=== PATIENT | male | born 1975 | race Caucasian/White ===

== ENCOUNTER 2022-11-30 06:36 | Day surgery (SDC) | payer OTHER ==
[~2022-11-30 06:36] MED LIST: Lactated Ringers 1,000 ML IV SCH
[2022-11-30] MEDS ORDERED: DIPRIVAN 200 MG/20 ML IV ONE ×2 (07:52→08:04)
[2022-11-30] MEDS ORDERED: Xylocaine-Mpf 2% 5 Ml Vial ONE (07:52)
[2022-11-30 08:55] LABS: Hematocrit 46.2 % (42-50); Hemoglobin 15.4 g/dL (12.5-18.0); Mean Corpuscular Hemoglobin 29.7 pg (26-32); Mean Corpuscular Hgb Concent. 33.3 g/dL (32-36); Mean Platelet Volume 11.3 fL (7.5-11.0); Platelet Count 210 x10^3/uL (150-450); Red Blood Count 5.19 x10^6/uL (4.1-5.6); Red Cell Distribution Width 12.7 % (11.5-14.0); White Blood Count 4.4 x10^3/uL (4.0-10.5)
[2022-11-30 09:08] LABS: ALBUMIN 4.5 g/dL (3.5-5.0); ALKALINE PHOSPHATASE 57 U/L (38-126); ANION GAP 10.6 MEQ/L (5-15); BLOOD UREA NITROGEN 11 mg/dL (9-20); CHLORIDE 105 mmol/L (98-107); Calcium 9.3 mg/dL (8.4-10.2); Carbon Dioxide 30 mmol/L (22-30); Creatinine 1 0.84 mg/dL (0.66-1.25); EST GLOMERULAR FILTRATION RATE > 60.0 ML/MIN; Glucose 101 mg/dL (74-106); SGOT/AST 41 U/L (17-59); SGPT/ALT 36 U/L (0-50); SODIUM 141 mmol/L (137-145); Total Protein 7.5 g/dL (6.3-8.2)
[2022-11-30 09:39] VITALS: BP 128/86; PULSE 52; O2SAT 100
--- NOTE | 2022-11-30 11:30 | OP ---
SURGERY DATE/TIME: 11/30/2022 0756 PREOPERATIVE DIAGNOSIS: Diarrhea and feeling of incomplete relief after bowel movements. 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 PROCEDURE: Colonoscopy with cold forceps biopsy. SURGEON: Dr. Holloway. ANESTHESIA: MAC. Medications given by anesthesia department. HISTORY: The patient is a 47-year-old white male patient with the above complaints of incomplete relief with bowel movements and at least five to six diarrheal stools a day. He also has a large family history of cancer of the colon. The patient is felt the need to have colonoscopic evaluation. He was appraised of the risks of the procedure including the risk of perforation, phlebitis, untoward reaction to medication, bleeding and missed lesions. The patient verbalized his understanding and desired to have the procedure performed. DESCRIPTION OF PROCEDURE: The patient was given the medications by the anesthesia department. He had continuous pulse oximetry, ECG monitoring and intermittent blood pressure monitoring during the examination. He was placed in the left lateral decubitus position. A digital rectal examination was performed and revealed normal anal sphincter tone, no masses and normal prostate. The flexible Olympus pediatric colonoscope was used to intubate the rectum. A view of the colon was developed sequentially to the cecum. Upon insertion and withdrawal was noted what appears to be a tubulovillous adenoma versus early adenocarcinoma of the colon in the distal sigmoid colon approximately at 10 cm depth insertion. Biopsies were obtained from several areas of this to help to determinate the lesion after which the scope was removed from the patient who tolerated the procedure well and was sent back to OP recovery in good condition. The prep was noted to be good. We discussed the findings with the patient's and have already made plans to get the patient a CT with and without contrast as well as a CBC, CMP and CEA level.
--- NOTE | 2022-11-30 11:35 | XRAY ---
Indication: Incomplete colonoscopy. Multiple contiguous axial images obtained through the abdomen and pelvis prior to and following 80 cc Isovue 370 contrast as ordered. Comparison: None Lung bases demonstrates minimal dependent atelectasis. No suspicious pulmonary mass, infiltrate, or effusion. Heart not enlarged. Noncontrasted images demonstrates nonobstructing left renal punctate calculus. No other visceral calcifications/calculi. Noncontrasted stomach and bowel loops appear nonobstructed with normal appendix. No free fluid/air. Postcontrast images demonstrate normal visceral enhancement and renal excretion. Left lobe liver demonstrates 7 mm hepatic cyst. Remaining liver, gallbladder, pancreas, spleen, adrenal glands, kidneys, ureters, bladder, and aorta are normal in CT appearance and attenuation. No pathologic retroperitoneal lymphadenopathy. Osseous structures intact. No ventral or inguinal hernias. Impression: 1. Nonobstructing left renal punctate calculus and subcentimeter hepatic cysts. 2. Remaining CT abdomen/pelvis with and without contrast exam is negative. 3. Barium enema exam may yield further information if there remains further clinical concern.
== END 2022-11-30 11:15 | disposition home or self-care (01) ==
LOC: SDC 06:36
PROVIDERS: ATTEND Family Medicine
DX: D12.5 Benign neoplasm of sigmoid colon (principal); R19.7 Diarrhea, unspecified; Z80.0 Family history of malignant neoplasm of digestive organs
CPT/HCPCS: 36415; 74178; 80053; 82378; 82947; 85027; J2704

== ENCOUNTER 2024-03-10 16:42 | Emergency (ER) | payer OTHER, SELFPAY ==
--- NOTE | 2024-03-10 17:04 | ERPHSYRPT ---
- History of Present Illness Source: patient, family Exam Limitations: no limitations Patient Subjective Stated Complaint: Pt states "I have been having a hard time picking stuff up with my right hand for a couple of months but today an hour ago at 345 pm the right side of my face was droopy and my speech got really slurred. It is a little better right now." Triage Nursing Assessment: PT presented alert and oriented x 3, skin pwd. pt speech is slurred, face slightly droops on the right, pt able to move all extremities bilat. Timing/Duration: today Severity: mild Character of Deficits: altered sensation (To moderate right facial numbness), impaired speech Baseline/Normal Cognition: alert oriented x 3 Current Cognition: alert oriented x 3 Baseline Gait: walks w/o assistance Associated Symptoms: slurred speech, other (Numbness right side of face with mild right-sided facial droop) Hx Tetanus, Diphtheria Vaccination/Date Given: No Hx Influenza Vaccination/Date Given: No Hx Pneumococcal Vaccination/Date Given: No Immunizations Up to Date: No <DELMAR RUANO - Last Filed: 03/10/24 19:05> <VAN SEALS - Last Filed: 03/10/24 19:57> - History of Present Illness Time Seen by Provider: 03/10/24 17:03 Physician History: This is a 48-year-old white male patient who presents to the emergency department with complaint of heaviness in the right side of his face with facial drooping, right-sided facial numbness and slurred speech. Patient states that this occurred approximately 3:45 PM prior to arrival to the emergency department. Patient states that he heard some very bad news today and he became distraught. In the last 2 months or greater the patient has had episodes that presents themselves when the patient is distraught emotionally upset or having a panic attack. 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 His significant other concurs. Patient has been seen in [facility] emergency department on 2 different occasions with similar type episodes. The initial visit, a CT scan of the head was performed followed by a MRI of the brain with and without contrast on the second visit. Both episodes occurred after patient was experiencing something very emotional for him. He has never seen a neurologist. Today's symptoms appear to affect his speech and right side of his face with numbness and slight drooping. The radiologist impression of the MRI with and without contrast was read as no acute/recent infarction. The right parietal calvarial small lucent lesion has intrinsic T1 hyperintensity and compatible with an intraosseous lesion. Patient denies chest pain. Patient denies shortness of breath. Patient has no abdominal pain. Patient appears very anxious (DELMAR RUANO) Allergies/Adverse Reactions: Penicillins Allergy (Verified 11/30/22 06:44) Home Medications: No Reportable Medications [No Reported Medications] 03/10/24 [History] Travel Risk - International Travel Have you traveled outside of the country in past 3 weeks: No - Emerging Infectious Disease Are you exhibiting symptoms associated with any current EIDs: No <DELMAR RUANO - Last Filed: 03/10/24 19:05> - Review of Systems Constitutional: No Symptoms Eyes: No Symptoms Ears, Nose, & Throat: No Symptoms Respiratory: No Symptoms Cardiac: No Symptoms Abdominal/Gastrointestinal: No Symptoms Genitourinary Symptoms: No Symptoms Musculoskeletal: No Symptoms Neurological: Parasthesia (+ Facial droop), Speech Changes (Slurred speech) Psychological: No Symptoms Endocrine: No Symptoms Hematologic/Lymphatic: No Symptoms Immunological/Allergic: No Symptoms All Other Systems: Reviewed and Negative <DELMAR RUANO - Last Filed: 03/10/24 19:05> - Past Medical History Pertinent Past Medical History: No Neurological History: No Pertinent History ENT History: No Pertinent History Cardiac History: No Pertinent History Respiratory History: No Pertinent History Endocrine Medical History: No Pertinent History Musculoskeletal History: No Pertinent History GI Medical History: No Pertinent History History: No Pertinent History Psycho-Social History: No Pertinent History Male Reproductive Disorders: No Pertinent History Other Medical History: gastric system delayed - Past Surgical History Past Surgical History: Yes Neuro Surgical History: No Pertinent History Cardiac: No Pertinent History Respiratory: No Pertinent History Gastrointestinal: No Pertinent History Genitourinary: No Pertinent History Musculoskeletal: No Pertinent History Male Surgical History: No Pertinent History Other Surgical History: wisdom teeth - Social History Smoking Status: Never smoker Exposure to second hand smoke: No Drug Use: none <DELMAR RUANO - Last Filed: 03/10/24 19:05> - [place] Coma Scale Best Eye Response ([place]): (4) open spontaneously Best Verbal Response (Slim): (5) oriented Best Motor Response ([place]): (6) obeys commands [place] Total: 15 - Physical Exam General Appearance: no apparent distress, alert, anxiety Eye Exam: bilateral eye: normal inspection, PERRL, EOMI Ears, Nose, Throat Exam: normal ENT inspection, moist mucous membranes Neck Exam: normal inspection, non-tender, supple, full range of motion Respiratory: normal breath sounds, lungs clear, airway intact, No chest tenderness, No respiratory distress Cardiovascular: regular rate/rhythm, normal heart sounds, normal peripheral pulses Gastrointestinal: soft, normal bowel sounds, No tenderness Male Genitalia: normal genitalia Rectal Exam: not done Back Exam: normal inspection, normal range of motion, No CVA tenderness, No vertebral tenderness Extremity Exam: normal inspection, normal range of motion, pelvis stable Mental Status: alert, oriented x 3, cooperative history department chair Exam: normal hearing, PERRL, abnormal speech, facial paresthesias (Right side facial numbness), tongue midline Motor/Sensory: no motor deficit, no sensory deficit Skin Exam: warm, dry, ecchymosis (Mild ecchymosis that is healing that occurred within the last couple of weeks after he had fallen. No deformity no pain) SpO2 Interpretation: normal SpO2: 100 O2 Delivery: Room Air <DELMAR RUANO - Last Filed: 03/10/24 19:05> - Nursing Vital Signs Nursing Vital Signs: Initial Vital Signs Pulse Rate 76 03/10/24 16:43 Respiratory Rate 22 03/10/24 16:43 Blood Pressure 159/113 03/10/24 16:43 O2 Sat by Pulse Oximetry 100 03/10/24 16:43 Pain Scale Pain Intensity 0 - Course Nursing assessment & vital signs reviewed: Yes <DELMAR RUANO - Last Filed: 03/10/24 19:05> Ordered Tests: Active Orders 24 hr Category Date Time Status AMA [Release AMA] OM.NOW Care 03/10/24 19:33 Active Painter Sign Maintenance STAT Care 03/10/24 17:09 Active EKG-ER Only STAT Care 03/10/24 17:08 Active IV Insertion STAT Care 03/10/24 17:08 Active NPO (ED) STAT Care 03/10/24 17:08 Active POCT Glucose Check STAT Care 03/10/24 17:08 Active Pulse Oximetry (ED) STAT Care 03/10/24 17:[address] ANGIOGRAPHY NECK [CT] Stat Exams 03/10/24 17:29 Taken CTA HEAD W AND/OR WO CONTRAST [CT] Stat Exams 03/10/24 17:04 Taken CBC W DIFF Stat Lab 03/10/24 17:00 Completed CMP Stat Lab 03/10/24 17:00 Completed PROTIME WITH INR Stat Lab 03/10/24 17:00 Completed UA W/RFX UR CULTURE Stat Lab 03/10/24 17:21 Completed Lab/Rad Data: Laboratory Result Diagrams 03/10/24 17:00 03/10/24 17:00 Laboratory Results 03/10/24 03/10/24 03/10/24 Range/Units 17:21 17:00 17:00 WBC (4.0-10.5) x10^3/uL RBC (4.1-5.6) x10^6/uL Hgb (12.5-18.0) g/dL Hct (42-50) % MCV (78-100) fL MCH (26-32) pg MCHC (32-36) g/dL RDW (11.5-14.0) % Plt Count (150-450) x10^3/uL MPV (7.5-11.0) fL Gran % (36.0-66.0) % Immature Gran % (Auto) (0.00-0.4) % Nucleat RBC Rel Count (0.00-0.1) % Eos # (Auto) (0-0.5) x10^3/uL Immature Gran # (Auto) (0.00-0.03) x10^3u/L Absolute Lymphs (auto) (1.0-4.6) x10^3/uL Absolute Monos (auto) (0.0-1.3) x10^3/uL Absolute Nucleated RBC (0.00-0.01) x10^3u/L Lymphocytes % (24.0-44.0) % Monocytes % (0.0-12.0) % Eosinophils % (0.00-5.0) % Basophils % (0.0-0.4) % Absolute Granulocytes (1.4-6.9) x10^3/uL Basophils # (0-0.4) x10^3/uL PT 10.2 (9.4-12.5) SECONDS INR 0.93 (0.8-3.0) Sodium 141 (135-145) mmol/L Potassium 4.4 (3.5-5.1) mmol/L Chloride 106 (98-107) mmol/L Carbon Dioxide 29 (22-30) mmol/L Anion Gap 10.5 (5-15) MEQ/L BUN 18 (9-20) mg/dL Creatinine 0.85 (0.66-1.25) mg/dL Estimated GFR 105.9 ML/MIN Glucose 91 (74-106) mg/dL Calcium 9.5 (8.4-10.2) mg/dL Total Bilirubin 0.70 (0.2-1.3) mg/dL AST 29 (17-59) U/L ALT 19 (0-50) U/L Alkaline Phosphatase 48 (38-126) U/L Serum Total Protein 7.6 (6.3-8.2) g/dL Albumin 4.4 (3.5-5.0) g/dL Urine Color Yellow (Yellow) Urine Appearance Clear (Clear) Urine pH 8.0 (4.6-8.0) Ur Specific [place] 1.010 (1.005-1.030) Urine Protein Negative (Negative) Urine Glucose (UA) Negative (Negative) mg/dL Urine Ketones Negative (Negative) Urine Blood Negative (Negative) Urine Nitrite Negative (Negative) Urine Bilirubin Negative (Negative) Urine Urobilinogen 0.2 (0.2) mg/dL Ur Leukocyte Esterase Small A (Negative) U Hyaline Cast (Auto) NONE SEEN (0-2) /LPF Urine Microscopic RBC 0-2 (0-5) /HPF Urine Microscopic WBC 0-2 (0-5) /HPF Ur Epithelial Cells None Seen (None Seen) /HPF Urine Bacteria None Seen (None Seen) /HPF Urine Culture Reflexed NO (NO) 03/10/24 Range/Units 17:00 WBC 5.5 (4.0-10.5) x10^3/uL RBC 4.98 (4.1-5.6) x10^6/uL Hgb 14.5 (12.5-18.0) g/dL Hct 42.5 (42-50) % MCV 85.3 (78-100) fL MCH 29.1 (26-32) pg MCHC 34.1 (32-36) g/dL RDW 12.7 (11.5-14.0) % Plt Count 232 (150-450) x10^3/uL MPV 11.6 H (7.5-11.0) fL Gran % 62.9 (36.0-66.0) % Immature Gran % (Auto) 0.2 (0.00-0.4) % Nucleat RBC Rel Count 0.0 (0.00-0.1) % Eos # (Auto) 0.09 (0-0.5) x10^3/uL Immature Gran # (Auto) 0.01 (0.00-0.03) x10^3u/L Absolute Lymphs (auto) 1.40 (1.0-4.6) x10^3/uL Absolute Monos (auto) 0.50 (0.0-1.3) x10^3/uL Absolute Nucleated RBC 0.00 (0.00-0.01) x10^3u/L Lymphocytes % 25.6 (24.0-44.0) % Monocytes % 9.2 (0.0-12.0) % Eosinophils % 1.6 (0.00-5.0) % Basophils % 0.5 (0.0-0.4) % Absolute Granulocytes 3.43 (1.4-6.9) x10^3/uL Basophils # 0.03 (0-0.4) x10^3/uL PT (9.4-12.5) SECONDS INR (0.8-3.0) Sodium (135-145) mmol/L Potassium (3.5-5.1) mmol/L Chloride (98-107) mmol/L Carbon Dioxide (22-30) mmol/L Anion Gap (5-15) MEQ/L BUN (9-20) mg/dL Creatinine (0.66-1.25) mg/dL Estimated GFR ML/MIN Glucose (74-106) mg/dL Calcium (8.4-10.2) mg/dL Total Bilirubin (0.2-1.3) mg/dL AST (17-59) U/L ALT (0-50) U/L Alkaline Phosphatase (38-126) U/L Serum Total Protein (6.3-8.2) g/dL Albumin (3.5-5.0) g/dL Urine Color (Yellow) Urine Appearance (Clear) Urine pH (4.6-8.0) Ur Specific [place] (1.005-1.030) Urine Protein (Negative) Urine Glucose (UA) (Negative) mg/dL Urine Ketones (Negative) Urine Blood (Negative) Urine Nitrite (Negative) Urine Bilirubin (Negative) Urine Urobilinogen (0.2) mg/dL Ur Leukocyte Esterase (Negative) U Hyaline Cast (Auto) (0-2) /LPF Urine Microscopic RBC (0-5) /HPF Urine Microscopic WBC (0-5) /HPF Ur Epithelial Cells (None Seen) /HPF Urine Bacteria (None Seen) /HPF Urine Culture Reflexed (NO) - Progress Progress: improved, re-examined Counseled pt/family regarding: lab results, diagnosis, rad results <DELMAR RUANO - Last Filed: 03/10/24 19:05> <VAN SEALS - Last Filed: 03/10/24 19:57> - Progress Progress Note: 03/10/24 18:00 My medical decision making and the assignment of moderate to high complexity of today's medical issue is based on review of the patient's past medical history, review of patient's outside hospital emergency room visit notes as well as radiographic and laboratory study results, review of the patient's medication list, review of patient's drug allergy list, history present illness and physical findings on examination. The workup in this patient includes placement of intravenous line, infusion of normal saline solution, urinalysis, urine drug screen, CBC, CMP, CTA of the head and neck, twelve-lead EKG and obtaining a teleneurology consultation. Differential diagnosis includes acute CVA, underlying panic disorder, electrolyte abnormalities, dehydration, urinary tract infection 03/10/24 19:05 Care of this patient to Dr. Seals at shift change. He will follow-up on the pending studies and make final disposition (DELMAR RUANO) 03/10/24 19:56 Patient initially did not want to be transferred and wanted to sign out AMA after Dr. Ruano as discussed with him in detail and recommendations of neurology to have MRI and ambulatory EEG. Before patient was leaving he decided to be transferred. I have discussed with Dr. [facility], reviewed history, workup and neurology recommendations and patient is accepted for transfer. (VAN SEALS) Medical Desision Making - Independent Historian Additional History obtained from: Spouse - Diagnostic Testing Diagnostic test were ordered, analyzed, and reviewed by me: Yes Radiological Interpretation: Reviewed by me, Teleradiologist Report <DELMAR RUANO - Last Filed: 03/10/24 19:05> - Departure Departure Disposition: Home Critical Care Time: No <DELMAR RUANO - Last Filed: 03/10/24 19:05> - Departure Departure Disposition: Transfer <VAN SEALS - Last Filed: 03/10/24 19:57> - Departure Clinical Impression: Slurred speech Condition: Stable Referrals: FIDEL BARCENAS NP [NON-STAFF PHY W/O PRIVILEGES] - Follow up/PCP as directed
[2024-03-10 17:16] LABS: Absolute Neutrophil Ct (ANC) 3.43 x10^3/uL (1.4-6.9); BASOPHIL % 0.5 % (0.0-0.4); Basophil (Absolute #) 0.03 x10^3/uL (0-0.4); Eosinophil % 1.6 % (0.00-5.0); Eosinophil (Absolute #) 0.09 x10^3/uL (0-0.5); Hematocrit 42.5 % (42-50); Hemoglobin 14.5 g/dL (12.5-18.0); IMMATURE GRAN # 0.01 x10^3u/L (0.00-0.03); IMMATURE GRAN % 0.2 % (0.00-0.4); Lymphocytes % 25.6 % (24.0-44.0); Mean Cell Volume 85.3 fL (78-100); Mean Corpuscular Hemoglobin 29.1 pg (26-32); Mean Corpuscular Hgb Concent. 34.1 g/dL (32-36); Mean Platelet Volume 11.6 fL (7.5-11.0); Monocytes % 9.2 % (0.0-12.0); Neutrophil % 62.9 % (36.0-66.0); Platelet Count 232 x10^3/uL (150-450); Red Blood Count 4.98 x10^6/uL (4.1-5.6); Red Cell Distribution Width 12.7 % (11.5-14.0); White Blood Count 5.5 x10^3/uL (4.0-10.5)
[2024-03-10 17:19] LABS: ALBUMIN 4.4 g/dL (3.5-5.0); ANION GAP 10.5 MEQ/L (5-15); BILIRUBIN,TOTAL 0.7 mg/dL (0.2-1.3); Calcium 9.5 mg/dL (8.4-10.2); Creatinine 1 0.85 mg/dL (0.66-1.25); EST GLOMERULAR FILTRATION RATE 105.9 ML/MIN; Potassium 4.4 mmol/L (3.5-5.1); Total Protein 7.6 g/dL (6.3-8.2)
[2024-03-10 17:20] LABS: INR 0.93 (0.8-3.0); PROTIME 10.2 SECONDS (9.4-12.5)
[2024-03-10 17:44] LABS: Appearance Clear (Clear); Bacteria None Seen /HPF (None Seen); Bilirubin Negative (Negative); Blood Negative (Negative); Epithelial Cells None Seen /HPF (None Seen); Glucose, Urine Negative (Negative); Hyaline Casts NONE SEEN /LPF (0-2); Ketones Negative (Negative); Leukocyte Esterase Small (Negative); Nitrite Negative (Negative); Protein,Urine Dip Negative (Negative); RBC 0-2 /HPF (0-5); Urobilinogen 0.2 mg/dL (0.2); WBC 0-2 /HPF (0-5)
[2024-03-10 17:46] LABS: ADD URINE CULTURE? NO (NO)
[2024-03-10 20:26] VITALS: BP 132/96; PULSE 59; RESP 11; O2SAT 99
[2024-03-10 20:28] VITALS: TEMP 98.1
--- NOTE | 2024-03-10 22:12 | XRAY ---
Indication: Slurred speech. Right facial droop. Conventional contrast enhanced CTA neck performed using 80 cc Isovue 370 contrast. 2-D sagittal and coronal reformatted images obtained. Additional 3-D reformatting images obtained using a separate workstation. Comparison: None Visualized aortic arch is normal in course and caliber with widely patent branching right brachiocephalic, left common carotid, and left subclavian arteries. Normal CTA appearance to the common carotid, carotid bulb, internal carotid, and external carotid arteries bilaterally. Vertebral arteries are bilaterally patent with left larger in caliber. Visualized soft tissues are negative for pathologic cervical/submandibular/supraclavicular lymphadenopathy. Parotid and submandibular glands are bilaterally symmetric. Thyroid gland enhances with 7 mm left lobe hypodense nodule/cyst. Supra/infraglottic airway widely patent. Osseous structures intact. Lung apices are clear. Impression: 1. Normal CTA neck with contrast exam. 2. Incidental 7 mm left thyroid hypodense nodule/cyst. Sonogram may yield further information if clinically warranted.
--- NOTE | 2024-03-10 22:14 | XRAY ---
Indication: Slurred speech. Right facial droop. Initial CT head was performed without contrast. Then conventional contrast enhanced CTA head performed using 80 cc Isovue 370 contrast. 2-D sagittal and coronal reformatted images obtained. Additional 3-D reformatting images obtained using a separate workstation. Comparison: None CT head without contrast demonstrates normal brain parenchyma, ventricles, and bony calvarium. Visualized paranasal sinuses and mastoid air cells are clear. CTA images demonstrates symmetric distal internal carotid arteries without critical stenosis, obstruction, or AV malformation. Normal carotid terminus with normal branching A1 and M1 segments bilaterally. More distal anterior cerebral and middle cerebral arteries are normal in CTA appearance bilaterally. Normal anterior communicating and posterior communicating arteries. Posterior circulation demonstrates normal CTA appearance to the basilar, left/right posterior cerebral, and left/right superior cerebellar arteries. Venous sinuses/drainage unremarkable. Brain parenchyma is negative for abnormal enhancing intra or extra-axial mass. Impression: 1. Normal CT head without contrast exam. 2. Normal CTA head with contrast exam.
== END 2024-03-10 20:40 | disposition short-term general hospital (02) ==
LOC: ED 16:42
DX: R47.81 Slurred speech (principal); R20.1 Hypoesthesia of skin; R29.810 Facial weakness
CPT/HCPCS: 36000; 36415; 70496; 70498; 80053; 81001; 85025; 85610; 93005; 93041; 94760; 99285

== ENCOUNTER 2025-10-25 11:31 | Emergency (ER) | payer OTHER, SELFPAY ==
[2025-10-25 11:48] VITALS: TEMP 97.6
--- NOTE | 2025-10-25 11:48 | ERPHSYRPT ---
- History of Present Illness Time Seen by Provider: 10/25/25 11:44 Source: patient, family Exam Limitations: no limitations Physician History: This is a 49-year-old white male patient arrives via private vehicle accompanied by his spouse with the complaint of speech difficulties, shakiness symptoms. Patient called his primary care provider's office, Dr. Reagan Henderson and spoke with nurses Cris and Anuja. The patient and his spouse told the nursing staff that the only test they want is an MRI of the brain. They do not want any other testing. They commented that Dr. Kirk told them that that is the test that they have to come to the emergency department for. The patient and her spouse gave significant pushback and did not want any testing done until they spoke to me. I spoke to them and explained to them that we do not typically do MRIs of any type through the emergency department. I reviewed with them what our process was in terms of workup of patients with stroke like symptoms. The patient's spouse was the most focal. Ultimately, they wanted me to call Dr. Kirk to see what testing they should do. I spoke with his PCP in [facility] at [phone]. She stated that she has not seen this patient in over a year and a half. The nurses documented that they told the patient to come to the emergency department for workup which would include imaging. There was no mention of MRI study. I looked back at February 2024 emergency department visit here at [facility]. I happened to see that patient on that date. They left AGAINST MEDICAL ADVICE. He had similar complaints as today. Patient and patient's spouse have stated that they have had multiple workups including observation at [facility] stroke center/floor. No workup has documented any thing acute. I reviewed my discussion with his PCP. I also reviewed with them what testing might plan included. He wanted to talk to his spouse. Patient delayed his care and intervention and workup at least 45 minutes by refusing, multiple times, workup results and me attempting to fill their request of speaking to their primary care physician, reviewing the testing that I am offering and a significant period of time for them to talk about what they want done. His primary care provider stated that she is aware that MRIs are not typically performed through the emergency department. Timing/Duration: day(s) (3) Severity: mild Character of Deficits: impaired speech Deficits: no difficulties Baseline/Normal Cognition: alert oriented x 3 Current Cognition: alert oriented x 3 Baseline Gait: walks only w/assistance Associated Symptoms: trouble walking (Complains of some right sided weakness but does not appear to have weakness on examination), other (No slurred speech but speech is very deliberate and slow) Allergies/Adverse Reactions: fentanyl Allergy (Verified 10/25/25 11:34) Penicillins Allergy (Verified 10/25/25 11:34) Home Medications: No Reportable Medications [No Reported Medications] 03/10/24 [History] Hx Tetanus, Diphtheria Vaccination/Date Given: No Hx Influenza Vaccination/Date Given: No Hx Pneumococcal Vaccination/Date Given: No Travel Risk - International Travel Have you traveled outside of the country in past 3 weeks: No - Emerging Infectious Disease Are you exhibiting symptoms associated with any current EIDs: No - Review of Systems Constitutional: No Symptoms Eyes: No Symptoms Ears, Nose, & Throat: No Symptoms Respiratory: No Symptoms Cardiac: No Symptoms Abdominal/Gastrointestinal: No Symptoms Genitourinary Symptoms: No Symptoms Musculoskeletal: No Symptoms Skin: No Symptoms Neurological: No Symptoms, Speech Changes, Other (Right sided weakness began 3 days ago but has improved) Psychological: No Symptoms Endocrine: No Symptoms Hematologic/Lymphatic: No Symptoms Immunological/Allergic: No Symptoms All Other Systems: Reviewed and Negative - Past Medical History Pertinent Past Medical History: No Neurological History: No Pertinent History ENT History: No Pertinent History Cardiac History: No Pertinent History Respiratory History: No Pertinent History Endocrine Medical History: No Pertinent History Musculoskeletal History: No Pertinent History GI Medical History: No Pertinent History History: No Pertinent History Psycho-Social History: No Pertinent History Male Reproductive Disorders: No Pertinent History Other Medical History: gastric system delayed - Past Surgical History Past Surgical History: Yes Neuro Surgical History: No Pertinent History Cardiac: No Pertinent History Respiratory: No Pertinent History Gastrointestinal: No Pertinent History Genitourinary: No Pertinent History Musculoskeletal: No Pertinent History Male Surgical History: No Pertinent History Other Surgical History: wisdom teeth - Social History Smoking Status: Never smoker Exposure to second hand smoke: No Drug Use: none - Social Determinants of Health Will the patient participate in the screening: Yes Do you worry about a steady place to live?: No In the past 12 months,have you had to go without utilities?: No Transportation Issues: No Has anyone in your support network made you feel unsafe?: No Have you or anyone in your house had to go w/o enough food: No - Nursing Vital Signs Nursing Vital Signs: Initial Vital Signs Pulse Rate 72 10/25/25 11:32 Respiratory Rate 22 10/25/25 11:32 Blood Pressure 160/113 10/25/25 11:32 O2 Sat by Pulse Oximetry 99 10/25/25 11:32 Pain Scale Pain Intensity 6 - [place] Coma Scale Best Eye Response ([place]): (4) open spontaneously Best Verbal Response ([place]): (5) oriented Best Motor Response ([place]): (6) obeys commands [place] Total: 15 - Physical Exam General Appearance: no apparent distress, alert, anxiety Eye Exam: bilateral eye: normal inspection, PERRL, EOMI Ears, Nose, Throat Exam: normal ENT inspection, moist mucous membranes Neck Exam: normal inspection, non-tender, supple Respiratory: normal breath sounds, lungs clear, airway intact, No chest tenderness, No respiratory distress Cardiovascular: regular rate/rhythm, normal heart sounds, normal peripheral pulses Gastrointestinal: soft, normal bowel sounds, No tenderness Rectal Exam: not done Back Exam: normal inspection, normal range of motion, No CVA tenderness, No vertebral tenderness Extremity Exam: normal inspection, normal range of motion, pelvis stable Mental Status: alert, oriented x 3, cooperative ve teacher Exam: normal hearing, PERRL, abnormal speech (Slow deliberate speech as if searching for words. He does get the appropriate words out), tongue midline Coordination/Gait: normal finger to nose, normal gait, normal cerebellar function Skin Exam: normal color, warm, dry SpO2 Interpretation: normal O2 Delivery: Room Air - Course Nursing assessment & vital signs reviewed: Yes EKG Interpreted by Me: RATE (58), Sinus Rhythm, Left [place] Deviation, NORMAL INTERVALS, NORMAL QRS, Other (No acute ischemia on today's twelve-lead EKG. QTc 379. No significant change when compared to twelve-lead EKG dated 03/10/2024) Ordered Tests: Active Orders 24 hr Category Date Time Status EKG-ER Only STAT Care 10/25/25 12:17 Completed IV Insertion STAT Care 10/25/25 12:17 Active NPO (ED) STAT Care 10/25/25 12:17 Active Pulse Oximetry (ED) STAT Care 10/25/25 12:[address] ANGIOGRAPHY NECK [CT] Stat Exams 10/25/25 12:19 Completed CTA HEAD W AND/OR WO CONTRAST [CT] Stat Exams 10/25/25 12:22 Completed CBC W DIFF Stat Lab 10/25/25 12:30 Completed CMP Stat Lab 10/25/25 12:30 Completed UA W/RFX UR CULTURE Stat Lab 10/25/25 12:38 Completed Medication Summary Generic Name Dose Route Start Last Admin Trade Name Freq PRN Reason Stop Dose Admin Sodium Chloride 1,000 mls @ 100 mls/hr 10/25/25 12:30 10/25/25 13:05 Sodium Chloride 0.9% 1000 Ml IV 11/24/25 12:29 100 mls/hr .Q10H SHIV Administration Lab/Rad Data: Laboratory Result Diagrams 10/25/25 12:30 10/25/25 12:30 Laboratory Results 10/25/25 10/25/25 10/25/25 Range/Units 12:38 12:30 12:30 WBC 7.2 (4.23-9.07) x10^3/uL RBC 5.36 (4.63-6.08) x10^6/uL Hgb 15.8 (13.7-17.5) g/dL Hct 46.4 (40.1-51.0) % MCV 86.6 (79.0-92.2) fL MCH 29.5 (25.7-32.2) pg MCHC 34.1 (32.3-36.5) g/dL RDW 13.1 (11.6-14.4) % Plt Count 259 (163-337) x10^3/uL MPV 10.6 (9.4-12.4) fL Gran % 69.0 H (34.0-67.9) % Immature Gran % (Auto) 0.3 (0.001-0.429) % Nucleat RBC Rel Count 0.0 (0.00-0.2) % Eos # (Auto) 0.14 (0.04-0.54) x10^3/uL Immature Gran # (Auto) 0.02 (0.001-0.031) x10^3u/L Absolute Lymphs (auto) 1.50 (1.32-3.57) x10^3/uL Absolute Monos (auto) 0.53 (0.30-0.82) x10^3/uL Absolute Nucleated RBC 0.00 (0.00-0.012) x10^3u/L Lymphocytes % 20.8 L (21.8-53.1) % Monocytes % 7.4 (5.3-12.2) % Eosinophils % 1.9 (0.8-7.0) % Basophils % 0.6 (0.2-1.2) % Absolute Granulocytes 4.98 (1.78-5.38) x10^3/uL Basophils # 0.04 (0.01-0.08) x10^3/uL Sodium 141 (135-145) mmol/L Potassium 3.5 (3.5-5.1) mmol/L Chloride 103 (98-107) mmol/L Carbon Dioxide 27 (22-30) mmol/L Anion Gap 13.7 (5-15) MEQ/L BUN 12 (9-20) mg/dL Creatinine 0.93 (0.66-1.25) mg/dL Estimated GFR 99.4 ML/MIN Glucose 116 H (74-106) mg/dL Calcium 9.6 (8.4-10.2) mg/dL Total Bilirubin 1.10 (0.2-1.3) mg/dL AST 34 (17-59) U/L ALT 33 (0-50) U/L Alkaline Phosphatase 48 (38-126) U/L Serum Total Protein 7.8 (6.3-8.2) g/dL Albumin 4.8 (3.5-5.0) g/dL Urine Color Yellow (Yellow) Urine Appearance Clear (Clear) Urine pH 6.0 (4.6-8.0) Ur Specific [place] 1.015 (1.005-1.030) Urine Protein Negative (Negative) Urine Glucose (UA) Negative (Negative) mg/dL Urine Ketones 15 A (Negative) Urine Blood Negative (Negative) Urine Nitrite Negative (Negative) Urine Bilirubin Negative (Negative) Urine Urobilinogen 0.2 (0.2) mg/dL Ur Leukocyte Esterase Negative (Negative) U Hyaline Cast (Auto) NONE SEEN (0-2) /LPF Urine Microscopic RBC 0-2 (0-5) /HPF Urine Microscopic WBC 0-2 (0-5) /HPF Ur Epithelial Cells None Seen (None Seen) /HPF Urine Bacteria None Seen (None Seen) /HPF Urine Culture Reflexed NO (NO) - Progress Progress: improved, re-examined Progress Note: 10/25/25 13:10 My medical decision making and the assignment of moderate to high complexity of this patient's medical issue today is based on review of the patient's past medical history, reviewed patient's medication list, reviewed patient drug allergy list, reviewed patient history present illness and physical findings on examination. In addition I took time to contact the patient's primary care provider at their request. I reviewed extensively the conversation I had with his PCP. I also reviewed extensively the workup I had planned for today. After a period of time, at 1218, the patient finally agreed to the workup including placement of intravenous line, twelve-lead EKG, urinalysis, CBC, CMP, CT scan of the head with and without contrast and CT angiography of the neck. Differential diagnosis includes but is not limited to seizures, pseudoseizures, anxiety, TIA, CVA, urinary tract infection, dehydration, electrolyte abnormalities, arrhythmia 10/25/25 15:30 I interpreted the patient's laboratory data results. Based on laboratory data results, there are no acute, emergent medical issues. The following CT scans were performed with contrast and were interpreted by the radiologist. The impressions are: CT scan angiogram of neck shows no change from 03/10/2024. Normal CTA neck with contrast exam. CTA scan head with and without contrast is unchanged from 03/10/2024. Is a normal study. I spoke with him about the results of his test. His spouse was in attendance. I discussed the benefit of a teleneurology consultation. The patient declines. He is awake alert and oriented and has the ability to make that decision. He will sign a declination form which states he is refusing the teleneurology consultation. Counseled pt/family regarding: lab results, diagnosis, need for follow-up, rad results Medical Desision Making - Independent Historian Additional History obtained from: Spouse - Diagnostic Testing Diagnostic test were ordered, analyzed, and reviewed by me: Yes Radiological Interpretation: Reviewed by me, Teleradiologist Report - Risk of complications Low Risk: Low risk of morbidity from additional dx testing or treatment - Departure Departure Disposition: Home Clinical Impression: Anxiety about health, Chronic tremor Condition: Stable Critical Care Time: No Referrals: RYAN,REAGAN A., LOLLYPOP MACHINE OPERATOR [Primary Care Provider, UNKNOWN] - Follow up/PCP as directed Additional Instructions: Call your primary care provider tomorrow, 10/26/2025, to make arrangements to be seen in the next 3 to 5 days to discuss referral to neurologist and psychiatry for further evaluation management. Take all your medications as prescribed.
[2025-10-25 12:40] LABS: BASOPHIL % 0.6 % (0.2-1.2); Basophil (Absolute #) 0.04 x10^3/uL (0.01-0.08); Eosinophil (Absolute #) 0.14 x10^3/uL (0.04-0.54); Hematocrit 46.4 % (40.1-51.0); Hemoglobin 15.8 g/dL (13.7-17.5); IMMATURE GRAN # 0.02 x10^3u/L (0.001-0.031); IMMATURE GRAN % 0.3 % (0.001-0.429); Lymphocyte (Absolute #) 1.50 x10^3/uL (1.32-3.57); Mean Corpuscular Hemoglobin 29.5 pg (25.7-32.2); Mean Corpuscular Hgb Concent. 34.1 g/dL (32.3-36.5); Monocyte (Absolute #) 0.53 x10^3/uL (0.30-0.82); NUCLEATED RBC # 0.00 x10^3u/L (0.00-0.012); NUCLEATED RBC % 0.0 % (0.00-0.2); Platelet Count 259 x10^3/uL (163-337); Red Blood Count 5.36 x10^6/uL (4.63-6.08); White Blood Count 7.2 x10^3/uL (4.23-9.07)
[2025-10-25 12:49] LABS: Glucose, Urine Negative (Negative); Protein,Urine Dip Negative (Negative); RBC 0-2 /HPF (0-5); WBC 0-2 /HPF (0-5)
[2025-10-25 12:54] LABS: Calcium 9.6 mg/dL (8.4-10.2); Carbon Dioxide 27.0 mmol/L (22-30); Creatinine 1 0.93 mg/dL (0.66-1.25); EST GLOMERULAR FILTRATION RATE 99.4 ML/MIN; Glucose 116.0 mg/dL (74-106); Potassium 3.5 mmol/L (3.5-5.1); SGOT/AST 34.0 U/L (17-59); SGPT/ALT 33.0 U/L (0-50); Total Protein 7.8 g/dL (6.3-8.2)
--- NOTE | 2025-10-25 15:02 | XRAY ---
Indication: Stroke-like symptoms. Normal CTA neck and CTA head exams in February 2024. Conventional contrast-enhanced CTA neck performed using 80 cc Isovue 370 contrast. 2D sagittal and coronal reformatted images obtained. Additional 3D reformatted images obtained using separate workstation. Again normal CTA appearance to visualized aortic arch, right brachiocephalic, and left common carotid arteries. Again normal CTA appearance to the common carotid, carotid bulb, internal carotid, and external carotid arteries bilaterally. Again vertebral arteries are bilaterally patent with the left larger in caliber. Visualized soft tissues again negative for pathologic cervical/supraclavicular lymphadenopathy. Thyroid gland enhances homogeneously. Supra and infraglottic airway widely patent. Lung apices clear. Osseous structures intact. Impression: No change compared to ER CTA neck exam March 10, 2024. Continued normal CTA neck with contrast exam.
[2025-10-25 15:06] VITALS: BP 142/92; PULSE 67; RESP 19; O2SAT 98
--- NOTE | 2025-10-25 15:08 | XRAY ---
Indication: Stroke-like symptoms. Normal CTA neck and CTA head exams in February 2024. Initial CT head was performed without contrast. Then conventional contrast-enhanced CTA head performed using 80 cc Isovue 370 contrast. 2D sagittal and coronal reformatted images obtained. Additional 3D reformatted images obtained using separate workstation. CT head without contrast again demonstrates normal brain parenchyma, ventricles, and bony calvarium for patient's age. Visualized paranasal sinuses and mastoid air cells are clear. CTA images again demonstrates symmetric widely patent distal internal carotid arteries. Normal carotid terminus with normal branching A1 and M1 segments bilaterally. More distal anterior cerebral and middle cerebral arteries are again normal in CTA appearance bilaterally. Again incidental anatomic variant for origin left posterior cerebral artery. Posterior circulation again demonstrates normal CTA appearance to the basilar, left/right posterior cerebral, and left/right superior cerebellar arteries. Venous sinuses/drainage unremarkable. Brain parenchyma again negative for abnormal intra or extra-axial enhancement. Impression: No change compared to ER CTA head with and without exams March 10, 2024. Continued normal CT head without contrast exam and normal CTA head with contrast exam.
== END 2025-10-25 15:47 | disposition home or self-care (01) ==
LOC: ED 11:31
DX: F45.9 Somatoform disorder, unspecified (principal); R25.1 Tremor, unspecified